=== PATIENT | male | born 1970 | race Caucasian/White ===

== ENCOUNTER 2022-12-23 08:38 | Emergency (ER) | payer BC ==
[2022-12-23] MEDS ORDERED: Sodium Chloride 0.9% 20 ML SDV IV PRN (08:50)
[2022-12-23] MEDS ORDERED: Sodium Chloride 0.9% 2.5 ML Syringe FLUSH PRN (08:50)
[2022-12-23] MEDS ORDERED: Sodium Chloride 0.9% 10 ML Syringe FLUSH PRN (08:50)
[2022-12-23] MEDS ORDERED: Morphine 2 MG/ML SYRINGE IVPUSH ONE ×2 (08:51→10:18)
[2022-12-23] MEDS ORDERED: Lactated Ringers 1,000 ML IV SCH (09:00)
[2022-12-23 09:28] LABS: CARBON DIOXIDE,CO2 23.5 mmol/L (21.0-32.0); POTASSIUM,K 3.9 mmol/L (3.5-5.1)
[2022-12-23] MEDS ORDERED: Iopamidol 755 MG/ML 500 ML Multipack Bottle IVPUSH STA (09:45)
[2022-12-23 10:42] LABS: CORONAVIRUS COVID-19 NAA NEGATIVE (NEGATIVE); INFLUENZA A NAA NEGATIVE (NEGATIVE); INFLUENZA B NAA NEGATIVE (NEGATIVE); RESPIRATORY SYNCYTIAL VIR NAA NEGATIVE (NEGATIVE)
[2022-12-23] MEDS ORDERED: Heparin Sodium/0.45% NaCl 500 ML IV SCH (11:00)
[2022-12-23] MEDS ORDERED: Heparin Sodium 5,000 Units/ML Vial IVPUSH ONE (11:02)
[2022-12-23] MEDS ORDERED: Ondansetron 4 MG/2 ML SDV IVPUSH ONE (11:27)
== END 2022-12-23 14:07 ==
LOC: MW.ED 08:38
DX: I26.99 Other pulmonary embolism without acute cor pulmonale (principal); Z20.822 Contact with and (suspected) exposure to COVID-19
CPT/HCPCS: 0241U; 36415; 70450; 71045; 71275; 72125; 74175; 80053; 83605; 83880; 84484; 85025; 85610; 85730; 86850; 86900; 86901; 93005; 96361; 96365; 96366; 96375; 96376; 99291; J1644; J2270; J2405; J3490; J7120; Q9967; 93010; 99292